=== PATIENT | female | born 1980 | race Native Hawaiian/Other Pacific Islander ===

== ENCOUNTER 2016-09-18 22:39 | Outpatient (CLI) | payer OTHER | END 2016-09-18 22:42 | disposition short-term general hospital (02) | LOC: AMB 22:39 | DX: M54.89 Other dorsalgia (principal) | CPT/HCPCS: A0425; A0429 ==

== ENCOUNTER 2016-09-18 22:49 | Emergency (ER) | payer OTHER ==
[~2016-09-18] VITALS: Ht 175.3 cm; Wt 90.7 kg
[2016-09-19 00:09] VITALS: BP 145/76; TEMP 98.5
== END 2016-09-19 00:10 | disposition home or self-care (01) ==
LOC: ED 22:49
DX: M54.89 Other dorsalgia (principal); G89.29 Other chronic pain
CPT/HCPCS: 99282

== ENCOUNTER 2018-04-10 14:52 | Inpatient (IN) | payer OTHER ==
[~2018-04-10] VITALS: Ht 177.8 cm; Wt 89.8 kg
[2018-04-10 14:50] VITALS: BP 132/84; TEMP 97.5
[2018-04-10 15:31] LABS: PLATELET COUNT 363 K/uL (152-353)
[2018-04-10 15:50] VITALS: BP 140/82; TEMP 98
[2018-04-10 15:54] LABS: POTASSIUM 3.6 mmol/L (3.6-5.2)
[2018-04-10 16:50] VITALS: BP 142/79; TEMP 98.4
[2018-04-10 17:51] VITALS: BP 125/82; TEMP 99.5; Ht 177.8 cm; Wt 89.8 kg
[2018-04-10] MEDS ORDERED: IBUPROFEN 200200 MG PO (18:02)
[2018-04-10] MEDS ORDERED: CELEXA20 MG PO (18:03)
[2018-04-10] MEDS ORDERED: BUPR8SUB2 PO (18:04)
[2018-04-10] MEDS ORDERED: AMBIEN5 MG PO (18:04)
[2018-04-10 19:51] VITALS: BP 136/67; TEMP 99.5
[2018-04-10 23:50] VITALS: BP 129/78; TEMP 99.4
[2018-04-11 03:57] VITALS: BP 105/63; TEMP 99.1
[2018-04-11 16:03] VITALS: BP 133/83; TEMP 99.3
[2018-04-11 19:30] VITALS: BP 142/88; TEMP 99.2
[2018-04-12] VITALS: BP 126/59; TEMP 98.3
[2018-04-12 08:04] VITALS: BP 144/87; TEMP 98.3
[2018-04-12 08:09] LABS: PLATELET COUNT 312 K/uL (152-353)
[2018-04-12 11:37] VITALS: BP 145/88; TEMP 98.2
[2018-04-12 16:31] VITALS: BP 126/81; TEMP 98.3
[2018-04-12 20:15] VITALS: BP 148/86; TEMP 98.4
[2018-04-13] VITALS: BP 145/90; TEMP 98.1
[2018-04-13 04:00] VITALS: BP 138/92; TEMP 98.3
[2018-04-13 08:06] VITALS: BP 153/83; TEMP 98.2
== END 2018-04-13 13:15 | DRG 690 ==
LOC: ED 14:52 → MED/SURG 16:20
DX: N10 Acute pyelonephritis (principal); N20.0 Calculus of kidney
CPT/HCPCS: 80053; 80307; 81000; 85027; 96365; 96366; 96367; 96372; 96375; 99284; J0696; J0744; J1650; J1885; J2270; J2405; J3490; J7120